=== PATIENT | female | born 1990 | race Caucasian/White ===

== ENCOUNTER 2021-05-10 00:19 | Outpatient (CLI) | payer OTHER ==
[2021-05-10 01:50] LABS: HEMOGLOBIN 9.9 gm/dl (12.3-15.3); RED BLOOD COUNT 3.7 M/UL (4.00-5.10); WHITE BLOOD COUNT 11.7 K/UL (4.5-11.0)
[2021-05-10 02:12] LABS: BUN/CREATININE RATIO 12 (0-10)
== END 2021-05-10 02:32 | disposition home or self-care (01) ==
LOC: GENOP 00:19
PROVIDERS: Obstetrics & Gynecology
DX: O36.8130 Decreased fetal movements, third trimester, not applicable or unspecified (principal); Z3A.35 35 weeks gestation of pregnancy; O99.891 Other specified diseases and conditions complicating pregnancy; R03.0 Elevated blood-pressure reading, without diagnosis of hypertension
CPT/HCPCS: 59025; 80053; 81001; 82570; 84156; 85025

== ENCOUNTER 2021-05-13 16:01 | Inpatient (IN) | payer OTHER ==
[~2021-05-13] VITALS: Ht 162.6 cm; Wt 98.4 kg
[2021-05-13 16:58] LABS: HEMOGLOBIN 9.5 gm/dl (12.3-15.3); RED BLOOD COUNT 3.62 M/UL (4.00-5.10)
[2021-05-13 17:21] LABS: BUN/CREATININE RATIO 13 (0-10)
[2021-05-13] MEDS ORDERED: COLACE 100MG C100 MG PO (18:37)
[2021-05-13] MEDS ORDERED: HYDROCODON-ACE1 EAC6 PO (18:37)
[2021-05-13] MEDS ORDERED: IBUPROFEN600 MG PO (18:37)
[2021-05-13] MEDS ORDERED: TRANDATE 200 M200 MG GT (19:16)
[2021-05-13] MEDS ORDERED: PREVACID30 MG PO (19:17)
[2021-05-14 05:46] LABS: HEMOGLOBIN 9.7 gm/dl (12.3-15.3)
== END 2021-05-15 17:30 | disposition home or self-care (01) | DRG 788 ==
LOC: GENOP 16:01 → OB 17:36
PROVIDERS: ADMIT Obstetrics & Gynecology
PROC: 3E0234Z Introduction of Serum, Toxoid and Vaccine into Muscle, Percutaneous Approach (ICD-10-PCS; 2021-05-13)
PROC: 4A1HXCZ Monitoring of Products of Conception, Cardiac Rate, External Approach (ICD-10-PCS; 2021-05-13)
PROC: 10D00Z1 Extraction of Products of Conception, Low, Open Approach (ICD-10-PCS; principal; 2021-05-13 19:00)
DX: O34.211 Maternal care for low transverse scar from previous cesarean delivery (principal); O11.4 Pre-existing hypertension with pre-eclampsia, complicating childbirth; Z37.0 Single live birth; Z3A.36 36 weeks gestation of pregnancy; Z20.822 Contact with and (suspected) exposure to COVID-19; Z23 Encounter for immunization
CPT/HCPCS: 80053; 81001; 82570; 82800; 83735; 84156; 85014; 85018; 85025; 90471; 90715; 94760; C9113; J0360; J0690; J2274; J2370; J2405; J2550; J2590; J3010; J3475; J7120; U0002

== ENCOUNTER 2021-11-03 16:58 | Emergency (ER) | payer OTHER ==
[~2021-11-03 16:58] MED LIST: COLACE 100MG C100 MG PO; HYDROCODON-ACE1 EAC6 PO; IBUPROFEN600 MG PO; PREVACID30 MG PO; TRANDATE 200 M200 MG GT
[2021-11-03 20:23] LABS: HEMOGLOBIN 12.7 gm/dl (12.3-15.3); RED BLOOD COUNT 4.59 M/UL (4.00-5.10)
[2021-11-03 20:45] LABS: BUN/CREATININE RATIO 11 (0-10)
== END 2021-11-03 22:04 | disposition home or self-care (01) ==
LOC: ER1 16:58
PROVIDERS: Physician Assistant
DX: O03.4 Incomplete spontaneous abortion without complication (principal)
CPT/HCPCS: 76817; 80053; 81001; 84702; 85025; 86900; 86901; 99284